=== PATIENT | male | born 1980 | race Caucasian/White ===

== ENCOUNTER 2022-06-16 11:20 | Emergency (ER) | payer OTHER ==
[2022-06-16 11:47] VITALS: BP 127/88; PULSE 69; RESP 17; TEMP 98.2; BMI 25.8
== END 2022-06-16 13:51 | disposition left against medical advice (07) ==
LOC: JER 11:20
DX: N50.819 Testicular pain, unspecified (principal)
CPT/HCPCS: 99281-25

== ENCOUNTER 2022-07-08 11:00 | Emergency (ER) | payer OTHER ==
[2022-07-08 11:08] VITALS: BP 129/74; PULSE 85; RESP 20; TEMP 98.1; BMI 25.8
[2022-07-08 13:35] LABS: PH,URINE 5.5 (5.0-8.0); URINE APPEARANCE CLEAR; URINE BILIRUBIN NEGATIVE (NEGATIVE); URINE COLOR YELLOW; URINE GLUCOSE (UA) NEGATIVE (NEGATIVE); URINE KETONE NEGATIVE (NEGATIVE); URINE LEUK ESTERASE NEGATIVE (NEGATIVE); URINE NITRITE NEGATIVE (NEGATIVE); URINE PROTEIN NEGATIVE (NEGATIVE); URINE UROBILINOGEN 0.2 mg/dL (0.2-1.0)
== END 2022-07-08 15:09 | disposition home or self-care (01) ==
LOC: JERFT 11:00 → JER 11:00 → JERFT 15:09
DX: K40.90 Unilateral inguinal hernia, without obstruction or gangrene, not specified as recurrent (principal); A60.01 Herpesviral infection of penis
CPT/HCPCS: 76870-TC; 81003; 99284-25

== ENCOUNTER 2022-11-11 09:46 | Emergency (ER) | payer OTHER ==
[2022-11-11 09:56] VITALS: BP 129/80; PULSE 90; RESP 18; TEMP 98; BMI 26.4
[2022-11-11] MEDS ORDERED: KETOROLAC TROMETHAMINE 30 MG/1 ML VIAL IM ONE (10:43)
[2022-11-11] MEDS ORDERED: KETOROLAC TROMETHAMINE 30 MG/1 ML VIAL ONE (11:44)
== END 2022-11-11 11:54 | disposition home or self-care (01) ==
LOC: JERFT 09:46
PROC: 3E0233Z Introduction of Anti-inflammatory into Muscle, Percutaneous Approach (ICD-10-PCS; principal; 2022-11-11)
DX: M25.511 Pain in right shoulder (principal)
CPT/HCPCS: 73030-TC-RT-FY; 73070-TC-RT-FY; 73090-TC-RT-FY; 99285-25